=== PATIENT | female | born 1985 | race Caucasian/White ===

== ENCOUNTER 2018-04-13 13:15 | Emergency (ER) | payer OTHER ==
[~2018-04-13] VITALS: Ht 172.7 cm; Wt 69.4 kg
[~2018-04-13 13:15] MED LIST: ABILIFY30 MG PO; ADDERALL 30 MG30 MG PO; AMBIEN 10 MG TA10 MG; BACTRIM DS TAB1 EACH PO; BACTROBAN15 GM TP; FLEXERIL PO; HUMALOG100 UNIT/1 SUBQ; IBUPROFEN 800800 M1 PO; IMITREX20 MG NS; LAMICTAL XR100 MG; LANTUS100 UNIT/M SUBQ; LATUDA40 MG PO; LORAZEPAM 1 MG T1 M1 PO; LOXAPINE5 MG PO; MOBIC15 MG; NORCO 5-325 TA1 EACH PO; ONDANSETRON HCL4 M3 PO; PRAZOSIN 1 MG CA1 M1 PO; PRISTIQ50 M1; PRISTIQ50 M1 PO; ROPINIROLE HCL0.5 MG PO; TEGRETOL XR200 MG PO; TOPAMAX50 MG PO; TRAZODONE HCL100 MG PO; VALIUM5 MG; VICODIN 5-5001 EACH PO; VISTARIL 25 MG25 M1 OR; VYVANSE30 MG; VYVANSE50 MG; VYVANSE70 MG PO; WELLBUTRIN XL300 M1 PO; XANAX 0.5 MG0.5 MG PO
[2018-04-13 13:51] LABS: ABSOLUTE MONOCYTES 0.7 thou/uL (0.0-1.2); ABSOLUTE NEUTROPHILS 8.4 thou/uL (1.6-8.1); BASOPHILS 0.3 %; EOSINOPHILS 0.4 %; HEMATOCRIT 40.4 % (37.0-47.0); HEMOGLOBIN 13.9 gm/dL (12.0-15.0); LYMPHOCYTES 10.1 %; MCH 32.4 pg (26.0-34.0); MCHC 34.5 g/dL (28.0-37.0); MONOCYTES 6.8 %; MPV 8.1 fl. (7.2-11.1); NUCLEATED RBCS 0 /100WBC; PLATELET COUNT* 299 thou/uL (150-400); POLYS 82.4 %; RDW-CV 13.2 % (10.5-14.5); WBC 10.2 thou/uL (4.0-11.0)
[2018-04-13 13:56] LABS: CALCIUM 9.5 mg/dL (8.5-10.1); CREATININE 0.7 mg/dL (0.6-1.3)
[2018-04-13 13:57] LABS: URINE BILIRUBIN NEGATIVE (Negative); URINE BLOOD 2+ (Negative); URINE CLARITY CLEAR; URINE COLOR YELLOW; URINE GLUCOSE-RANDOM 3+ (Negative); URINE KETONES NEGATIVE (Negative); URINE LEUKOCYTES-REFLEX 1+ (Negative); URINE PROTEIN 2+ (Negative); URINE UROBILINOGEN 0.2 E.U./dl (0.2-1.0)
[2018-04-13 13:58] LABS: URINE NITRITE-REFLEX POSITIVE (Negative)
[2018-04-13 14:01] LABS: ALBUMIN 2.9 g/dL (3.4-5.0); TOTAL BILIRUBIN 0.3 mg/dL (<0.1-1.0); TOTAL PROTEIN 7.2 g/dL (6.4-8.2)
[2018-04-13 14:03] LABS: CASTS None Seen /LPF (None Seen); CRYSTALS None Seen /LPF (None Seen); MUCUS None Seen strn/LPF (None Seen); SQUAMOUS 0-3 Few /LPF (0-3); URINE RBC 3-10 Few /HPF (0-2); URINE WBC-REFLEX >25 Many /HPF (0-5)
[2018-04-13] MEDS ORDERED: BACTRIM DS TAB1 EACH PO (16:27)
[2018-04-13] MEDS ORDERED: PYRIDIUM200 MG PO (16:27)
[2018-04-13] MEDS ORDERED: ZOFRAN4 MG PO (16:27)
[2018-04-13 17:01] VITALS: BP 98/52
== END 2018-04-13 17:03 | disposition home or self-care (01) ==
LOC: M.ERS 13:15
PROVIDERS: Nurse Practitioner Family
DX: N39.0 Urinary tract infection, site not specified (principal); F31.9 Bipolar disorder, unspecified; F41.9 Anxiety disorder, unspecified; J45.909 Unspecified asthma, uncomplicated; F43.10 Post-traumatic stress disorder, unspecified; F90.9 Attention-deficit hyperactivity disorder, unspecified type; E11.9 Type 2 diabetes mellitus without complications; Z79.4 Long term (current) use of insulin; F17.210 Nicotine dependence, cigarettes, uncomplicated; Z88.5 Allergy status to narcotic agent

== ENCOUNTER 2019-02-21 15:13 | Emergency (ER) | payer OTHER ==
[~2019-02-21] VITALS: Ht 172.7 cm; Wt 76.7 kg
[~2019-02-21 15:13] MED LIST changes: +PYRIDIUM200 MG PO; +ZOFRAN4 MG PO
[2019-02-21] MEDS ORDERED: AMPHETAMINE SAL30 MG PO (15:22)
[2019-02-21] MEDS ORDERED: PROPRANOLOL 1010 MG PO (15:22)
[2019-02-21] MEDS ORDERED: DILAUDID 2 MG TA2 MG PO (15:23)
[2019-02-21] MEDS ORDERED: MAXALT MLT ODT10 M1 PO (15:23)
[2019-02-21] MEDS ORDERED: REQUIP4 MG PO (15:24)
[2019-02-21] MEDS ORDERED: IBUPROFEN 600600 M1 PO (15:59)
[2019-02-21] MEDS ORDERED: NORCO 5-325 TA1 EACH PO (15:59)
[2019-02-21 16:26] VITALS: BP 115/69
== END 2019-02-21 16:27 | disposition home or self-care (01) ==
LOC: M.ERS 15:13
DX: S63.591A Other specified sprain of right wrist, initial encounter (principal); F41.9 Anxiety disorder, unspecified; F31.9 Bipolar disorder, unspecified; F90.9 Attention-deficit hyperactivity disorder, unspecified type; J45.909 Unspecified asthma, uncomplicated; E11.9 Type 2 diabetes mellitus without complications; F17.210 Nicotine dependence, cigarettes, uncomplicated; Z88.5 Allergy status to narcotic agent; Z88.6 Allergy status to analgesic agent; Z79.4 Long term (current) use of insulin; Z98.890 Other specified postprocedural states; W18.39XA Other fall on same level, initial encounter; Y93.89 Activity, other specified; Y92.89 Other specified places as the place of occurrence of the external cause; Y99.8 Other external cause status

== ENCOUNTER 2019-04-11 21:02 | Emergency (ER) | payer OTHER ==
[~2019-04-11] VITALS: Ht 170.2 cm; Wt 69.8 kg
[~2019-04-11 21:02] MED LIST changes: +AMPHETAMINE SAL30 MG PO; +DILAUDID 2 MG TA2 MG PO; +IBUPROFEN 600600 M1 PO; +MAXALT MLT ODT10 M1 PO; +PROPRANOLOL 1010 MG PO; +REQUIP4 MG PO
[2019-04-11] MEDS ORDERED: PROPRANOLOL 4040 MG PO (21:30)
[2019-04-11 21:47] LABS: HEMATOCRIT 38.4 % (37.0-47.0); HEMOGLOBIN 12.8 gm/dL (12.0-15.0); MCH 32.3 pg (26.0-34.0); MCHC 33.3 g/dL (28.0-37.0); MPV 9.5 fl. (7.2-11.1); RBC 3.95 mil/uL (4.20-5.00); RDW-CV 14.7 % (10.5-14.5); WBC 5.7 thou/uL (4.0-11.0)
[2019-04-11 22:09] LABS: CALCIUM 8.4 mg/dL (8.5-10.1); CREATININE 0.8 mg/dL (0.6-1.3); POTASSIUM 3.8 mmol/L (3.5-5.1); TOTAL BILIRUBIN 0.4 mg/dL (<0.1-1.0); TOTAL PROTEIN 6.2 g/dL (6.4-8.2)
[2019-04-11 22:09] LABS: URINE BILIRUBIN NEGATIVE (Negative); URINE BLOOD TRACE (Negative); URINE CLARITY CLEAR; URINE COLOR YELLOW; URINE GLUCOSE-RANDOM 3+ (Negative); URINE KETONES NEGATIVE (Negative); URINE LEUKOCYTES TRACE (Negative); URINE NITRITE NEGATIVE (Negative); URINE PROTEIN NEGATIVE (Negative); URINE SPECIFIC GRAVITY <= 1.005 (1.005-1.030); URINE UROBILINOGEN 0.2 E.U./dl (0.2-1.0)
[2019-04-11 22:16] LABS: AMP/METHAMP Negative (Negative); BARBITURATES Negative (Negative); BENZODIAZEPINES Negative (Negative); COCAINE Negative (Negative); METHADONE Negative (Negative); OPIATES Negative (Negative); PCP Negative (Negative); THC POSITIVE (Negative)
[2019-04-11 22:16] LABS: ACETAMINOPHEN < 2 ug/mL (10-30); ALCOHOL < 10 mg/dL (<10); SALICYLATE < 2.8 mg/dL (2.8-20.0)
[2019-04-11 22:17] LABS: SQUAMOUS 0-3 Few /LPF (0-3)
[2019-04-11 22:18] LABS: BACTERIA >30 Many /HPF (None Seen); CASTS None Seen /LPF (None Seen); CRYSTALS None Seen /LPF (None Seen); MUCUS 0-3 Light strn/LPF (None Seen); URINE RBC 3-10 Few /HPF (0-2); URINE WBC >25 Many /HPF (0-5); WBC CLUMPS Many (None Seen)
[2019-04-12] MEDS ORDERED: XANAX 1 MG TABLE1 MG PO (01:09)
[2019-04-12 02:09] LABS: CALCIUM 8.4 mg/dL (8.5-10.1); CREATININE 0.6 mg/dL (0.6-1.3); POTASSIUM 3.3 mmol/L (3.5-5.1)
[2019-04-12 03:35] VITALS: BP 106/62
--- NOTE | 2019-04-12 17:13 | EKG ---
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
== END 2019-04-12 03:35 | disposition home or self-care (01) ==
LOC: M.ERS 21:02
PROVIDERS: Personal Emergency Response Attendant
DX: F41.9 Anxiety disorder, unspecified (principal); F17.210 Nicotine dependence, cigarettes, uncomplicated; F90.9 Attention-deficit hyperactivity disorder, unspecified type; F32.9 Major depressive disorder, single episode, unspecified; J45.909 Unspecified asthma, uncomplicated; E11.9 Type 2 diabetes mellitus without complications; K76.0 Fatty (change of) liver, not elsewhere classified; Z79.4 Long term (current) use of insulin; Z88.6 Allergy status to analgesic agent; Z88.5 Allergy status to narcotic agent

== ENCOUNTER 2019-11-01 13:14 | Emergency (ER) | payer OTHER ==
[~2019-11-01] VITALS: Ht 170.2 cm; Wt 64.0 kg
[~2019-11-01 13:14] MED LIST changes: +PROPRANOLOL 4040 MG PO; +XANAX 1 MG TABLE1 MG PO
[2019-11-01 13:39] LABS: URINE BLOOD NEGATIVE (Negative); URINE CLARITY CLEAR; URINE COLOR YELLOW; URINE GLUCOSE-RANDOM 2+ (Negative); URINE LEUKOCYTES NEGATIVE (Negative); URINE NITRITE NEGATIVE (Negative); URINE PROTEIN NEGATIVE (Negative); URINE SPECIFIC GRAVITY 1.025 (1.005-1.030); URINE UROBILINOGEN 0.2 E.U./dl (0.2-1.0)
[2019-11-01] MEDS ORDERED: FUROSEMIDE 20 M20 MG PO (13:40)
[2019-11-01 13:43] LABS: HEMATOCRIT 41.7 % (37.0-47.0); HEMOGLOBIN 14.4 gm/dL (12.0-15.0); MCH 33.3 pg (26.0-34.0); MCHC 34.6 g/dL (28.0-37.0); MCV 96.4 fL (80.0-100.0); MPV 8.4 fl. (7.2-11.1); RBC 4.33 mil/uL (4.20-5.00); WBC 6.4 thou/uL (4.0-11.0)
[2019-11-01 13:44] LABS: ICTOTEST (BILI CONFIRMATORY) Negative (Negative); URINE BILIRUBIN 1+ (Negative); URINE KETONES 3+ (Negative)
[2019-11-01 13:45] LABS: ACETEST (KETONE CONFIRMATORY) Large (Negative); AMP/METHAMP Negative (Negative); BARBITURATES Negative (Negative); BENZODIAZEPINES POSITIVE (Negative); COCAINE Negative (Negative); METHADONE Negative (Negative); OPIATES Negative (Negative); PCP Negative (Negative); THC Negative (Negative)
[2019-11-01 13:57] LABS: ACETAMINOPHEN < 2 ug/mL (10-30); ALCOHOL < 10 mg/dL (<10); SALICYLATE < 2.8 mg/dL (2.8-20.0)
[2019-11-01 14:45] LABS: CALCIUM 8.9 mg/dL (8.5-10.1); CREATININE 1.3 mg/dL (0.6-1.3)
[2019-11-01 14:48] LABS: POTASSIUM 2.9 mmol/L (3.5-5.1)
[2019-11-01 14:49] LABS: ALBUMIN 3.4 g/dL (3.4-5.0); TOTAL BILIRUBIN 1.2 mg/dL (<0.1-1.0)
--- NOTE | 2019-11-01 17:20 | EKG ---
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 : 1985 Requested By: Jo Cotton Order Number: [id number] MD: Timbo Gregory Measurements Intervals [place] Rate: 99 P: 63 MT: 129 QRS: 81 QRSD: 84 T: -5 QT: 353 QTc: 453 Interpretive Statements Sinus rhythm Possible left atrial enlargement Nonspecific T abnormalities, anterior leads Compared to ECG 04/11/2019 21:41:07 T-wave abnormality now present Electronically Signed On 11-01-2019 17:19:55 PROCEDURES NURSE by Timbo Gregory [email or web address] <ELECTRONICALLY SIGNED> By: Timbo Gregory MD, [facility] 11/01/19 1719 1320 1320 Timbo Gregory MD, FACC /EPI
[2019-11-01 18:48] VITALS: BP 116/76
== END 2019-11-01 18:48 ==
LOC: M.ERS 13:14
PROVIDERS: Personal Emergency Response Attendant
DX: T42.4X2A Poisoning by benzodiazepines, intentional self-harm, initial encounter (principal); F41.9 Anxiety disorder, unspecified; F32.9 Major depressive disorder, single episode, unspecified; J45.909 Unspecified asthma, uncomplicated; E11.9 Type 2 diabetes mellitus without complications; Z88.6 Allergy status to analgesic agent; Z88.5 Allergy status to narcotic agent; Z98.51 Tubal ligation status; F17.210 Nicotine dependence, cigarettes, uncomplicated; Y92.89 Other specified places as the place of occurrence of the external cause